=== PATIENT | male | born 1985 | race Caucasian/White ===

== ENCOUNTER 2022-01-04 09:43 | Outpatient (CLI) | payer BC, SELFPAY | END 2022-01-04 09:44 | disposition home or self-care (01) | LOC: ANHAUDIO 09:44 | PROVIDERS: PCP Family Medicine; Visit Provider Otolaryngology | DX: H91.91 Unspecified hearing loss, right ear (principal) | CPT/HCPCS: 92557; 92567 ==

== ENCOUNTER 2024-05-16 12:16 | Outpatient (CLI) | payer OTHER, SELFPAY ==
--- NOTE | ~2024-05-16 | CT_ITS ---
EXAMINATION: CT abdomen pelvis w con DATE: 05/16/2024 12:50 INDICATION: Left lower quadrant abdominal pain TECHNIQUE: Computed tomography (CT) of the abdomen and pelvis was performed with 100 mL Omnipaque-350 intravenous contrast. Automated exposure control and iterative reconstruction technique were employe d. The dose-length product was 799.57 mGy-cm. COMPARISON: None FINDINGS: Mild dependent atelectasis in bilateral lower lobes. Heart size normal. No pericardial or pleural eff usion. Liver, pancreas, bilateral adrenal glands and kidneys are normal. There are several small gall stones in the dependent aspect of the normal-appearing gallbladder. No intra- or extrahepatic biliary ductal dilation. Prosthetic mild splenomegaly measuring 14.5 cm maximal length. There are multiple d iverticula along the descending and sigmoid colon. There is a short segment of wall thickening and min rrounding inflammatory stranding at the proximal sigmoid colon consistent with diverticulitis. Remain viola the bowels are normal including a normal appendix. No abscess or free intraperitoneal gas or flui d. Bladder is normal. No pathologically enlarged abdominal or pelvic lymphadenopathy. Severe disc hei ght loss with degenerative endplate changes at L4-L5. Otherwise mild lumbar and lower thoracic spondy losis. IMPRESSION: 1. Radiographically uncomplicated sigmoid diverticulitis. If not previously performed would consider follow-up colonoscopy when clinically improved to exclude malignancy which while unlikely could prese nt similarly. 2. Cholelithiasis. Reviewed, dictated and finalized at location A. IMPRESSION: 1. Radiographically uncomplicated sigmoid diverticulitis. If not previously per formed would consider follow-up colonoscopy when clinically improved to exclude malignancy which while unlikely could present similarly. 2. Cholelithiasis.
--- OUTSIDE RECORDS SUMMARY | 2024-05-16 12:39 | XMS_ITS | Clinical Summary ---
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 Gender Identity Not on file Sexual Orientation Not on file Plan of Treatment Health Maintenance Due Date Last Done Comments Hepatitis C Virus (HCV) Screening 1985 Hepatitis B Immunization (1 of 3 - 19+ 3-dose series) 01/23/2003 SARS-COV-2 Immunization ( season) 2023 09/05/2020, 08/08/2020 Influenza Immunization (Season Ended) 2024 11/22/2019, 11/16/2018, 11/21/2014, Additional history exists Respiratory Syncytial Virus (RSV) Immunization (Adult) (1 - 1-dose 75+ series) 01/23/2059 DTaP/Tdap/Td Immunization Discontinued 04/24/2014, TdaP Immunization Completed 04/24/2014, 08/27/2012 Meningococcal Immunization (ACWY) Aged Out No longer eligible based on patient's age to complete this topic Pneumococcal Immunization Combined Aged Out No longer eligible based on patient's age to complete this topic Rotavirus Immunization Aged Out No lo nger eligible based on patient's age to complete this topic
--- OUTSIDE RECORDS SUMMARY | 2024-05-16 12:39 | XMS_ITS | Clinical Summary ---
Author Organization [facility] Address [address] [place] [id number] Care Team Providers Care Miner Helper Name Role Phone BolandKar littlejohn Primary Care Provider Social History Tobacco Use Types Packs/Day Years Used Date Smoking Tobacco: Never Assessed Sex and Gender Information Value Date Recorded Sex Assigned at Not on file Legal Sex Male 5:39 PM CDT Gender Identity Not on file Sexual Orientation Not on file Last Filed Vital Signs Vital Sign Reading Time Taken Comments Blood Pressure 130/78 03/27/2013 1:10 PM SENIOR CORPORATE RECRUITER Pulse - - Temperature - - Respiratory Rate - - Oxygen Saturation - - Inhaled Oxygen Concentration - - Weight 89.8 kg (198 lb) 03/27/2013 1:10 PM SENIOR CORPORATE RECRUITER Height 177.8 cm (5' 10 ) 03/27/2013 1:10 PM SENIOR CORPORATE RECRUITER Body Mass Index 28.41 03/27/2013 1:10 PM SENIOR CORPORATE RECRUITER Plan of Treatment Health Maintenance Due Date Last Done Comments Annual Physical 01/23/1987 Hepatitis C 01/23/2002 DTaP, Tdap and Td Vaccines ( 1 - Tdap) 01/23/2003 Hepatitis B Vaccines (1 of 3 - 19+ 3-dose series) 01/23/2003 COVID-19 Vaccine (2023-2 5 season) 2023 Influenza Adult (#1) 2023 HPV Vaccines Aged Out No longer eligi ble based on patient's age to complete this topic Meningococcal B Vaccine Aged Out No l onger eligible based on patient's age to complete this topic Meningococcal Vaccine Aged Out No yesenia sravani eligible based on patient's age to complete this topic Pneumococcal Vaccine: Pediat rics (0 to 5 Years) and At-Risk Patients (6 to 64 Years) Aged Out No longer eligible b ased on patient's age to complete this topic RSV Immunizations Under 20 Months Aged Out No longer eligible based on patient's age to complete this topic Care Teams Miner Helper Relationship Specialty Start Date End Date Kar Boland DO [address] [place], [place] [id number] PCP - General 08/27/12
[2024-05-16 13:27] LABS: Basophils Absolute Auto 0.1 K/mm3 (0.0-0.1); Basophils Percent Auto 0.9 % (0.2-1.2); Eosinophils Absolute Auto 0.2 K/mm3 (0-0.3); Eosinophils Percent Auto 2.7 % (0-4.4); Hematocrit 40.7 % (42.0-52.0); Hemoglobin 14.2 g/dL (14.0-18.0); Immature Granulocyte Absolute 0.05 K/mm3 (0.00-0.031); Immature Granulocyte Percent A 0.7 % (0-0.5); Lymphocytes Absolute Auto 2.16 K/mm3 (0.9-3.2); Lymphocytes Percent Auto 31.1 % (18.3-44.2); Mean Corpuscular HGB Conc 34.9 g/dl (32-36); Mean Corpuscular Hemoglobin 31.7 pg (26-34); Mean Corpuscular Volume 90.8 fl (80-100); Mean Platelet Volume 11.2 fl (7.4-10.4); Monocytes Absolute Auto 0.6 K/mm3 (0.1-0.6); Monocytes Percent Auto 8.4 % (2.6-8.5); Neutrophils Absolute Auto 3.9 K/mm3 (1.3-6.7); Neutrophils Percent Auto 56.2 % (45.5-73.1); Platelet Count Result 213 k/mm3 (150-375); Red Blood Count 4.48 M/mm3 (4.6-6.20); White Blood Count 6.9 K/mm3 (4.5-10.0)
[2024-05-16 13:36] LABS: Alanine Aminotransferase 28 U/L (6-50); Albumin Level 4.4 g/dL (3.5-5.1); Alkaline Phosphatase 94 U/L (38-126); Amylase 98 U/L (30-110); Anion Gap 11 mmol/L (4-12); Aspartate Amino Transferase 27 U/L (17-59); Bilirubin,Total 0.3 mg/dL (0.2-1.3); Blood Urea Nitrogen 17 mg/dL (9-20); Calcium 8.9 mg/dL (8.4-10.2); Carbon Dioxide 26 mmol/L (22-30); Chloride 103 mmol/L (98-107); Estimated Glomerular Filt Rate > 60; Glucose 92 mg/dL (65-110); Lipase 115 U/L (23-300); Potassium 4.2 mmol/L (3.4-5.0); Sodium 140 mmol/L (137-145)
== END 2024-05-16 12:17 | disposition home or self-care (01) ==
PROVIDERS: PCP Family Medicine; Visit Provider Physician Assistant
DX: K80.20 Calculus of gallbladder without cholecystitis without obstruction (principal); K57.32 Diverticulitis of large intestine without perforation or abscess without bleeding
CPT/HCPCS: 36415; 74177; 80053; 82150; 83690; 85025; Q9967

== ENCOUNTER 2024-08-02 00:06 | Day surgery (SDC) | payer OTHER, SELFPAY ==
[2024-07-19 10:34] VITALS: BMI 30.1
--- OUTSIDE RECORDS SUMMARY | 2024-08-02 00:12 | XMS_ITS | Clinical Summary ---
Author Organization [facility] Address [address] [place] [id number] Care Team Providers Care Chip Silo Tender Name Role Phone BolandKar littlejohn Primary Care Provider [phone] Social History Tobacco Use Types Packs/Day Years Used Date Smoking Tobacco: Never Assessed Sex and Gender Information Value Date Recorded Sex Assigned at Not on file Legal Sex Male 5:39 PM CDT Gender Identity Not on file Sexual Orientation Not on file Last Filed Vital Signs Vital Sign Reading Time Taken Comments Blood Pressure 130/78 03/27/2013 1:10 PM SLAT BASKET TOP MAKER Pulse - - Temperature - - Respiratory Rate - - Oxygen Saturation - - Inhaled Oxygen Concentration - - Weight 89.8 kg (198 lb) 03/27/2013 1:10 PM SLAT BASKET TOP MAKER Height 177.8 cm (5' 10) 03/27/2013 1:10 PM SLAT BASKET TOP MAKER Body Mass Index 28.41 03/27/2013 1:10 PM SLAT BASKET TOP MAKER Plan of Treatment Health Maintenance Due Date Last Done Comments Annual Physical 01/23/1987 Hepatitis C 01/23/2002 DTaP, Tdap and Td Vaccines ( 1 - Tdap) 01/23/2003 Hepatitis B Vaccines (1 of 3 - 19+ 3-dose series) 01/23/2003 COVID-19 Vaccine (2023-2 5 season) 2023 HPV Vaccines Aged Out No longer eligi ble based on patient's age to complete this topic Meningococcal B Vaccine Aged Out No l onger eligible based on patient's age to complete this topic Meningococcal Vaccine Aged Out No yesenia sravani eligible based on patient's age to complete this topic Pneumococcal Vaccine: Pediat rics (0 to 5 Years) and At-Risk Patients (6 to 49 Years) Aged Out No longer eligible b ased on patient's age to complete this topic RSV Immunizations Under 20 Months Aged Out No longer eligible based on patient's age to complete this topic Care Teams Chip Silo Tender Relationship Specialty Start Date End Date Kar Boland DO [address] [place] [address] PCP - General 08/27/12
--- OUTSIDE RECORDS SUMMARY | 2024-08-02 00:12 | XMS_ITS | Clinical Summary ---
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
[2024-08-02 13:36] VITALS: BP 128/86; PULSE 76; RESP 20; TEMP 37; O2SAT 100
[2024-08-02] MEDS: LACTATED RINGERS 1,000 ML 150 ML IV CONT (13:43)
--- NOTE | 2024-08-02 14:41 | P.PNAN_ITS ---
Anes - Initial Pre Proc Eval Procedure: Operation Date: 08/02/24 14:30 Proposed Procedures p Colonoscopy - Benito Antonio MD Date/Time: 08/02/24 14:41 Surgeon: Benito Antonio MD Pre Op Diagnosis: Diverticulitis of intestine, part unspecified, wit Patient Data Age: 39 Gender: M Height: 1.78 m Weight: 92.1 kg Last Vital Signs Temp 98.6 F 08/02/24 13:36 Pulse 76 08/02/24 13:36 Resp 20 08/02/24 13:36 BP 128/86 08/02/24 13:36 Pulse Ox 100 08/02/24 13:36 O2 Del Method Room Air 08/02/24 13:36 Allergies Allergy/AdvReac Type Severity Reaction Status Date / Time bee pollen Allergy Unknown Unknown Verified 08/02/24 13:34 Home Medications ?Medication ?Instructions ?Recorded ?Confirmed ?Type fluticasone propionate 50 1 - 2 spray intranasal BID #16 02/17/22 08/02/24 Rx mcg/actuation nasal grams spray,suspension sertraline 100 mg tablet 150 mg (1.5 x 100 mg) PO DAILY 04/08/24 08/02/24 Rx #135 tabs Patient hx anesthesia problems: none Family hx anesthesia problems: none Results Review: All pre-operative results and documents have been reviewed as part of the pre-operative evaluation. [facility] Past Medical History Medical History Acne, unspecified Alcohol abuse, in remission Alcoholic peripheral neuropathy Generalized anxiety disorder Family History Family History Mother Hypertension Social History Social History Smoking packs per day: 0.5 Smoking cigarettes per day: 10.0 Years smoked: 6 Smoking pack-years: 3.00 Smoking status: Former smoker Tobacco type: cigarettes Smoking end date: 02/13/02 Alcohol intake: never Substance use: never Substance use type: does not use Lack of Transportation: No Lack of Food: Never True Current Housing: I Have Housing Concerned About Future Housing: No Difficulty Paying Gas/Electric Bills: No Difficulty Paying for Meds: No Currently Unemployed: No Education: Associate Degree Difficulty w/ Childcare or Family Care: No Living arrangements: with family Occupation/Education: occupation Gender identity (if verbalized by the patient): Male Sexual Orientation (if Verbalized by the Patient): Straight or Heterosexual Spiritual care concerns: No Anes - Eval Final PreProcedure Day of Procedure 08/02/24 14:41 Patient weight: normal Heart: regular rate and rhythm Lungs: clear to auscultation Airway: Mallampati scale class II Neurological: alert and oriented Last oral intake: >/= 8 hours ASA classification: II Emergent: no Anesthetic plan: proceed Anesthesia type and monitoring: general GIVS and standard monitoring Results Review: All pre-operative results and documents have been reviewed as part of the pre- operative evaluation. Informed Consent: The patient's anesthetic plan and its attendant risks and benefits were discussed with the patient/family/POA. Questions were solicited and answers provided to the satisfaction of the patient/family/POA.
--- NOTE | 2024-08-02 15:08 | PM.HPGS ---
History of Present Illness History of Present Illness Consent: Risks, benefits, and alternatives have been discussed and questions answered. Patient agrees to proceed with procedure. Chief complaint: Diverticulitis of intestine, part unspecified, wit Narrative: Mehran Clifford is a 39 year old male here for first colonoscopy, 05/2024 had diverticulitis, now back to his baseline. Review of Systems Review of Systems: All systems reviewed & are unremarkable except as noted in HPI and below PMFSH Past Medical History Medical History (Updated 08/02/24 @ 15:09 by Benito Antonio MD) History of diverticulitis of colon Acne, unspecified Alcohol abuse, in remission Alcoholic peripheral neuropathy Generalized anxiety disorder Family History Family History Mother Hypertension Social History Social History Smoking packs per day: 0.5 Smoking cigarettes per day: 10.0 Years smoked: 6 Smoking pack-years: 3.00 Smoking status: Former smoker Tobacco type: cigarettes Smoking end date: 02/13/02 Alcohol intake: never Substance use: never Substance use type: does not use Lack of Transportation: No Lack of Food: Never True Current Housing: I Have Housing Concerned About Future Housing: No Difficulty Paying Gas/Electric Bills: No Difficulty Paying for Meds: No Currently Unemployed: No Education: Associate Degree Difficulty w/ Childcare or Family Care: No Living arrangements: with family Occupation/Education: occupation Gender identity (if verbalized by the patient): Male Sexual Orientation (if Verbalized by the Patient): Straight or Heterosexual Spiritual care concerns: No Meds Home Medications and Allergies Home Medications ?Medication ?Instructions ?Recorded ?Confirmed ?Type fluticasone propionate 50 1 - 2 spray intranasal BID #16 02/17/22 08/02/24 Rx mcg/actuation nasal grams spray,suspension sertraline 100 mg tablet 150 mg (1.5 x 100 mg) PO DAILY 04/08/24 08/02/24 Rx #135 tabs Allergies Allergy/AdvReac Type Severity Reaction Status Date / Time bee pollen Allergy Unknown Unknown Verified 08/02/24 13:34 Vital Signs Vital Signs - 24 hr 08/02/24 13:36 Temperature 98.6 F Pulse Rate 76 Respiratory Rate 20 Blood Pressure 128/86 Pulse Oximetry 100 Oxygen Delivery Room Air Exam Const: General: comfortable and no acute distress HENMT: Face/Nose/Sinus: Normal nares present Eyes: General: appearance normal, both eyes and all related structures Neck: Neck: no JVD Resp: Auscultation: clear to auscultation bilaterally Cardio: Rate: regular rate Rhythm: regular rhythm GI: Inspection: non-distended GI Palp: Yes Soft to palpation Skin: General skin exam: normal color Neuro: General: gait normal Speech: normal speech Extrem: General: normal to inspection Psych: Mental Status: mental status grossly normal Assessment and Plan Assessment and plan (1) History of diverticulitis of colon: Code(s): Z87.19 - Personal history of other diseases of the digestive system Status: Acute Assessment and Plan: colonoscopy
[2024-08-02 15:24] VITALS: BP 99/71; PULSE 81; RESP 23; O2SAT 95
[2024-08-02 15:34] VITALS: BP 121/85; PULSE 67; RESP 20; O2SAT 97
[2024-08-02 15:44] VITALS: BP 123/74; PULSE 66; RESP 20; O2SAT 99
--- NOTE | 2024-08-05 09:12 | S_PTH ---
PATIENT: Mehran Clifford LOC: [facility]#:[id number] AGE/SX: 39/M ROOM: RE08/02/[address]: Benito Antonio MD : 1985 BED: DIS: 08/02/2024 SPEC #: [id number] RECD: 08/05/24 09:17 STATUS: MARCELA REQ #: [id number] JOSE E: 08/05/24 09:[address]: Benito Antonio DEPT: [facility] Surgical RECD BY: Jada Call ENTERED: 08/05/24 09:18 SP TYPE: Surgical OTHR DR: Mario Zeng MD Tissues: A - Colon Polypectomy Procedures: Hematoxylin and Eosin Stain Gross and Microscopic Level 4
== END 2024-08-02 15:54 | disposition home or self-care (01) ==
PROVIDERS: PCP Family Medicine; Referring Provider Physician Assistant; Visit Provider Internal Medicine Gastroenterology
PROC: 0DJD8ZZ Inspection of Lower Intestinal Tract, Via Natural or Artificial Opening Endoscopic (ICD-10-PCS; CPT 45378; principal; 2024-08-02 14:30)
DX: K57.30 Diverticulosis of large intestine without perforation or abscess without bleeding (principal); D12.0 Benign neoplasm of cecum; Z87.19 Personal history of other diseases of the digestive system; Z87.891 Personal history of nicotine dependence
CPT/HCPCS: 45380; 88305; J2003; J2704; J7120